=== PATIENT | female | born 1945 | race African-American/Black ===

== ENCOUNTER → 2016-12-27 | Outpatient (CLI) | payer MEDICARE, OTHER ==
--- NOTE | 2016-12-27 13:55 | KCIC ---
Examination: CT chest without contrast. HISTORY Follow-up abnormal CT scan COMPARISON None available. TECHNIQUE Axial CT images of the chest were performed without contrast. Coronal sagittal reformats were performed. Exposure: One or more of the following dose reduction technique were utilized for this examination: 1. Automated exposure control. 2.Adjustment of MA and /or KV according to patient size. 3. Use of iterative reconstruction technique. Findings: The visualized thyroid gland grossly appears unremarkable. The central airways are patent. Mild coronary artery calcifications. The heart size grossly appears unremarkable. The ascending aorta measures 3.7 centimeters in transverse dimension. Calcified lymph nodes identified in the right hilum and the right paratracheal region. There is faint ground-glass airspace opacity identified in the right upper lobe of the lung. No evidence of pleural effusion or pneumothorax. Multiple cystic structures identified in the liver with the largest measuring 3.1 centimeters in the left lobe likely cysts. Multiple calcified granulomas identified in the spleen . No evidence of lytic or destructive lesion identified. IMPRESSION - Faint ground-glass airspace opacity identified in the right upper lobe of the lung, nonspecific. Comparison to prior exam is recommended if available. Alternatively followup examination is recommended 3-6 months to document stability. - Multiple cystic structures identified in the liver probably cysts. - Mild coronary artery calcifications. Electronically signed by: Enmanuel De Los Santos (Dec 27, 2016 13:54:13)
== END | disposition home or self-care (01) ==
LOC: KCIC CT 09:43
PROVIDERS: ATTEND Internal Medicine Pulmonary Disease
DX: R91.8 Other nonspecific abnormal finding of lung field (principal); I25.10 Atherosclerotic heart disease of native coronary artery without angina pectoris
CPT/HCPCS: 71250

== ENCOUNTER → 2017-07-15 | Outpatient (CLI) | payer MEDICARE, OTHER ==
--- NOTE | 2017-07-16 11:52 | KCIC ---
DATE: 07/15/2017 EXAM: MAMMO ROSSANA SCREENING BILATERAL HISTORY: Routine screening COMPARISON: 06/19/2016 This study was interpreted with the benefit of Computerized Aided Detection (CAD). The breast parenchyma shows scattered fibroglandular densities. Breast parenchyma level B. FINDINGS: 2-D and 3-D tomosynthesis imaging was performed in CC and MLO projections. No new or enlarging breast densities are seen. Benign type calcifications are present. No suspicious microcalcifications are evident. Benign-appearing lymph node type densities are projected over the axillary regions. IMPRESSION: Stable mammograms without evidence of malignancy. BI-RADS CATEGORY: 2 BENIGN FINDING(S) RECOMMENDED FOLLOW-UP: 12M 12 MONTH FOLLOW-UP PQRS compliance statement: Patient information was entered into a reminder system with a target due date for the next mammogram. Mammography is a sensitive method for finding small breast cancers, but it does not detect them all and is not a substitute for careful clinical examination. A negative mammogram does not negate a clinically suspicious finding and should not result in delay in biopsying a clinically suspicious abnormality. "Our facility is accredited by the [employer] Mammography [employer]."
== END | disposition home or self-care (01) ==
LOC: KCIC MAMMO 09:16
PROVIDERS: ATTEND Internal Medicine
DX: Z12.31 Encounter for screening mammogram for malignant neoplasm of breast (principal)
CPT/HCPCS: 77063; G0202; 77067

== ENCOUNTER → 2018-07-16 | Outpatient (CLI) | payer MEDICARE, OTHER ==
--- NOTE | 2018-07-16 10:47 | KCIC ---
EXAM: Bilateral digital screening mammogram with tomosynthesis. HISTORY: 73-year-old female presents for screening mammography. TECHNIQUE: Full-field digital craniocaudal and mediolateral oblique 2D and 3D tomosynthesis images of both breasts are obtained for evaluation. Computer aided detection with [employer] software version 9.3 was applied. COMPARISON: 07/15/2017 BREAST PARENCHYMAL DENSITY: Level B - Scattered fibroglandular densities. FINDINGS: There is no new suspicious mass, microcalcification or region of architectural distortion. There is stable areas of nodularity and asymmetry within both breasts. IMPRESSION: BI-RADS Category 2: Benign finding(s). RECOMMENDATION: Annual mammography is recommended. If your mammogram demonstrates that you have dense breast tissue, which could hide abnormalities, and if you have other risk factors for breast cancer that have been identified, you might benefit from supplemental screening tests that may be suggested by your ordering physician. Dense breast tissue, in and of itself, is a relatively common condition. This information is not provided to cause undue concern, but rather to raise your awareness and to promote discussion with your physician regarding the presence of other risk factors, in addition to dense breast tissue. A report of your mammography results will be sent to you and your physician. You should contact your physician if you have any questions or concerns regarding this report. Mammography is a sensitive method for finding small breast cancers, but it does not detect them all and is not a substitute for careful clinical examination. A negative mammogram does not negate a clinically suspicious finding and should not result in delay in biopsying a clinically suspicious abnormality. PQRS compliance statement - Patient information was entered into a reminder system with a target due date for the next mammogram. "Our facility is accredited by the [employer]ammography [employer]." Electronically signed by: Lula Sims MD (07/16/2018 10:44 AM) [id number]
== END | disposition home or self-care (01) ==
LOC: KCIC MAMMO 09:45
PROVIDERS: ATTEND Internal Medicine
DX: Z12.31 Encounter for screening mammogram for malignant neoplasm of breast (principal)
CPT/HCPCS: 77063; 77067

== ENCOUNTER → 2018-12-11 | Outpatient (CLI) | payer MEDICARE, OTHER ==
[~2018-12-11] MED LIST: BENA20TA4 PO; IOHEXOL 300 MG/ML 100ML VIAL. IV ONE
--- NOTE | 2018-12-11 14:20 | KCIC ---
PQRS Compliance statement: One or more of the following individualized dose reduction techniques were utilized for this examination: 1. Automated exposure control. 2. Adjustment of the mA and/or kV according to patient size. 3. Use of iterative reconstruction technique. Indication:Ischemic colitis. Abdominal pain. TECHNIQUE: CT angiogram of the abdomen with IV contrast with multiplanar MIP reformats. 3-D volume rendered postprocessing was performed. Calculation of stenosis performed using NASCET like criteria. COMPARISON: CT abdomen pelvis from 12/23/2016. FINDINGS: Heart is normal in size. No pericardial or pleural effusion. Clear lung bases. Multiple scattered low attenuating lesions are seen in the liver demonstrating fluid density, the largest in segment 2 measuring 3.8 x 3.0 cm compatible with hepatic cysts. Multiple calcified granulomas seen in the spleen. No radiopaque gallstones. Pancreas and adrenals within normal limits. Kidneys within normal limits. No enlarged retroperitoneal adenopathy. Visualized bowel is within normal limits. No significant atherosclerotic disease of the abdominal aorta. No aneurysmal dilation. Celiac axis and SMA share is the same origin with mild atherosclerotic plaque at the origin. The splenic artery, left gastric artery, common hepatic artery, SMA, BRIT, bilateral renal arteries and proximal common iliac arteries are within normal limits. No suspicious bony lesion. IMPRESSION: Mild atherosclerotic plaque seen at the origin of the celiac axis and SMA which share common origin. No significant stenosis. Electronically signed by: Raymundo Mazariegos DO (12/11/2018 2:18 PM) [id number]
== END | disposition home or self-care (01) ==
LOC: KCIC CT 09:57
PROVIDERS: ATTEND Internal Medicine
DX: K55.1 Chronic vascular disorders of intestine (principal); K76.89 Other specified diseases of liver; D73.89 Other diseases of spleen
CPT/HCPCS: 74175; 82565; Q9967

== ENCOUNTER → 2019-01-11 | Outpatient (CLI) | payer MEDICARE, OTHER ==
[~2019-01-11] VITALS: Ht 170.2 cm; Wt 85.7 kg
[~2019-01-11] MED LIST changes: -IOHEXOL 300 MG/ML 100ML VIAL. IV ONE; +NORMAL SALINE IV ONE; +SINCALIDE IV ONE
--- NOTE | 2019-01-11 08:37 | RAD ---
ABDOMEN LTD History: EPIGASTRIC PAIN Comparison: Chest CT December 27, 2016 Findings: Multiple sonographic images of the abdomen are submitted. There is no abnormality of the visualized pancreas. There is segmental visualization of the inferior vena cava. Hepatic echotexture is within normal limits. There is a avascular hypoechoic lesion right lobe of liver up to 3.3 x 2.1 cm in size. There is also hypoechoic lesion left lobe of liver about 4.7 cm in size. Right lobe liver measured 16.2 cm longitudinal. Gallbladder is present without intraluminal abnormality, wall thickening, pericholecystic fluid. Right kidney measured 9.8 x 4.1 x 4.9 cm, no hydronephrosis. Common bile duct is within normal limits at 0.4 cm. Impression: 1. There are hypoechoic liver lesions, sonographic features suggestive of cysts. No other significant abnormality is demonstrated. Electronically signed by: Sergio Newberry MD (01/11/2019 8:34 AM) [id number]
--- NOTE | 2019-01-11 11:24 | RAD ---
Examination: Nuclear medicine hepatobiliary scan. Clinical Indication: Right-sided abdominal pain after eating Comparison: None available Findings: Following intravenous administration of 5.4 mCi of Choletec tagged with Tc, sequential gamma camera images of the right upper quadrant of the abdomen were obtained. There is prompt accumulation of radionuclide in the liver which appears to be unremarkable Prompt accumulation in the central intrahepatic biliary radicals, gallbladder, common bile duct and small bowel is noted. Patient was also infused with 1.7mcg of CCK and gallbladder ejection fraction was calculated which measures 97% Impression: Normal nuclear hepatobiliary scan with gallbladder ejection fraction measuring 97%. Electronically signed by: Enmanuel De Los Santos MD (01/11/2019 11:21 AM) [id number]
== END | disposition home or self-care (01) ==
LOC: US 07:05
PROVIDERS: ATTEND Internal Medicine Gastroenterology
DX: K76.89 Other specified diseases of liver (principal)
CPT/HCPCS: 76705; 78227; A9537; J2805

== ENCOUNTER → 2019-07-19 | Outpatient (CLI) | payer MEDICARE, OTHER ==
[~2019-07-19] MED LIST changes: -NORMAL SALINE IV ONE; -SINCALIDE IV ONE
--- NOTE | 2019-07-20 08:32 | KCIC ---
BILATERAL SCREENING MAMMOGRAM, 3-D History: Routine screening. Comparison: Abdominal mammogram July 16, 2018. Technique: MLO and CC digital tomosynthesis (3D) images obtained. Radiologist reviewed these images on dedicated workstation. Findings: Breast Tissue Density B : There are scattered areas of fibroglandular density. There are no dominant masses, suspicious microcalcifications, or architectural distortion. IMPRESSION: No mammographic evidence of malignancy. Recommend routine screening. BI-RADS category 1: Negative. The images were reviewed with computer-aided detection. Patient information is entered into reminder system with a target due date for the next screening mammogram. Mammography is the most sensitive method for finding small breast cancers, but it does not detect them all and is not a substitute for careful clinical examination. A negative mammogram does not negate a clinically suspicious finding and should not result in delay in biopsying a clinically suspicious abnormality. "Our facility is accredited by the [employer] Mammography [employer]." Electronically signed by: Don Otoole MD (07/20/2019 8:29 AM) [id number]
== END | disposition home or self-care (01) ==
LOC: KCIC MAMMO 10:23
PROVIDERS: ATTEND Internal Medicine
DX: Z12.31 Encounter for screening mammogram for malignant neoplasm of breast (principal)
CPT/HCPCS: 77063; 77067

== ENCOUNTER 2019-10-30 17:29 | Inpatient (IN) | payer MEDICARE, OTHER ==
[~2019-10-30] VITALS: Ht 170.2 cm; Wt 88.1 kg
[2019-10-30] MEDS ORDERED: NITROGLYCERIN SUBLINGUAL 0.4 MG BOTTLE OF 25. SL PRN (18:00)
[2019-10-30] MEDS ORDERED: ASPIRIN CHEWABLE 81 MG TABLET. PO ONE (18:00)
[2019-10-30 18:08] LABS: BASO # 0.1 x10^3/uL (0.0-0.2); BASO % 1 % (0-3); EOS # 0.1 x10^3/uL (0.0-0.7); EOS % 1 % (0-3); HEMATOCRIT 40.9 % (36.0-47.0); HEMOGLOBIN 13.6 g/dL (12.0-15.5); LYMPH # 2.1 x10^3/uL (1.0-4.8); LYMPH % 31 % (24-48); MEAN CORPUSCULAR HEMOGLOBIN 30 pg (25-35); MEAN CORPUSCULAR HGB CONC 33 g/dL (31-37); MEAN CORPUSCULAR VOLUME 91 fL (79-100); MONO # 0.4 x10^3/uL (0.0-1.1); MONO % 7 % (0-9); NEUT # 4.1 x10^3/uL (1.8-7.7); NEUT % 60 % (31-73); PLATELET COUNT 281 x10^3/uL (140-400); RED BLOOD COUNT 4.48 x10^6/uL (3.50-5.40); RED CELL DISTRIBUTION WIDTH 13.3 % (11.5-14.5); WHITE BLOOD COUNT 6.9 x10^3/uL (4.0-11.0)
--- NOTE | 2019-10-30 18:09 | PHYS DOC ---
Adult General Chief Complaint Chief Complaint: CHEST PAIN HPI HPI Patient is a 74 year old female with history of hypertension and GERD who presents with complaint of chest pain. Patient complaining of episodes of chest pain since yesterday in left lower chest as an aching pain associated with nausea and dizziness and palpitation. Pain resolved spontaneously yesterday and it started about 2 hours prior to arrival to ER today and did not resolve spontaneously. Patient rated her pain 7/10. Patient didn't take any pain medication and denies history of the same pain previously. The pain does not getting better or worse with anything. (KEY BANGURA MD) Review of Systems Review of Systems Constitutional: Denies fever or chills [] Eyes: Denies change in visual acuity, redness, or eye pain [] HENT: Denies nasal congestion or sore throat [] Respiratory: Denies cough or shortness of breath [] Cardiovascular: No additional information not addressed in HPI [] GI: Denies abdominal pain, vomiting, bloody stools or diarrhea [] : Denies dysuria or hematuria [] Musculoskeletal: Denies back pain or joint pain [] Integument: Denies rash or skin lesions [] Neurologic: Denies headache, focal weakness or sensory changes [] Endocrine: Denies polyuria or polydipsia [] All other systems were reviewed and found to be within normal limits, except as documented in this note. (KEY BANGURA MD) Current Medications Current Medications Current Medications Medications (Trade) Dose Ordered Sig/Devan Start Time Stop Time Status Last Admin Dose Admin Aspirin (Children'S Aspirin) 324 mg 1X ONCE 10/30/19 18:00 10/30/19 18:07 DC 10/30/19 18:00 324 MG Nitroglycerin (Nitrostat) 0.4 mg PRN Q5MIN PRN 10/30/19 18:00 10/31/19 17:59 10/30/19 18:43 0.4 MG (EDILBERTO MENDIOLA Jr. DO) Allergies Allergies Allergies Coded Allergies Type Severity Reaction Last Updated Verified Penicillins Allergy Intermediate 12/11/18 Yes (EDILBERTO MENDIOLA Jr. DO) Physical Exam Physical Exam Constitutional: Well developed, well nourished, mild distress, non-toxic appearance. [] HENT: Normocephalic, atraumatic. Eyes: PERRLA, EOMI, conjunctiva normal, no discharge. [] Neck: Normal range of motion, no tenderness, supple, no stridor. [] Cardiovascular:Heart rate regular rhythm, no murmur [] Lungs & Thorax: Bilateral breath sounds clear to auscultation , reproducible left-sided chest pain[] Abdomen: Bowel sounds normal, soft, no tenderness, no masses, no pulsatile masses. [] Skin: Warm, dry, no erythema, no rash. [] Back: No tenderness, no CVA tenderness. [] Extremities: No tenderness, no cyanosis, no clubbing, ROM intact, no edema. [] Neurologic: Alert and oriented X 3, no focal deficits noted. [] Psychologic: Affect normal, judgement normal, mood normal. [] (KEY BANGURA MD) Current Patient Data Vital Signs Vital Signs Date Time Temp Pulse Resp B/P (MAP) Pulse Ox O2 Delivery O2 Flow Rate FiO2 10/30/19 18:43 58 143/65 10/30/19 17:40 98.3 20 99 Room Air 98.3 (EDILBERTO MENDIOLA Jr. DO) Lab Values Laboratory Tests Test 10/30/19 17:52 White Blood Count 6.9 x10^3/uL (4.0-11.0) Red Blood Count 4.48 x10^6/uL (3.50-5.40) Hemoglobin 13.6 g/dL (12.0-15.5) Hematocrit 40.9 % (36.0-47.0) Mean Corpuscular Volume 91 fL (79-100) Mean Corpuscular Hemoglobin 30 pg (25-35) Mean Corpuscular Hemoglobin Concent 33 g/dL (31-37) Red Cell Distribution Width 13.3 % (11.5-14.5) Platelet Count 281 x10^3/uL (140-400) Neutrophils (%) (Auto) 60 % (31-73) Lymphocytes (%) (Auto) 31 % (24-48) Monocytes (%) (Auto) 7 % (0-9) Eosinophils (%) (Auto) 1 % (0-3) Basophils (%) (Auto) 1 % (0-3) Neutrophils # (Auto) 4.1 x10^3/uL (1.8-7.7) Lymphocytes # (Auto) 2.1 x10^3/uL (1.0-4.8) Monocytes # (Auto) 0.4 x10^3/uL (0.0-1.1) Eosinophils # (Auto) 0.1 x10^3/uL (0.0-0.7) Basophils # (Auto) 0.1 x10^3/uL (0.0-0.2) Prothrombin Time 12.5 SEC (11.7-14.0) Prothrombin Time INR 1.0 (0.8-1.1) Sodium Level 144 mmol/L (136-145) Potassium Level 3.7 mmol/L (3.5-5.1) Chloride Level 104 mmol/L (98-107) Carbon Dioxide Level 31 mmol/L (21-32) Anion Gap 9 (6-14) Blood Urea Nitrogen 15 mg/dL (7-20) Creatinine 1.3 mg/dL (0.6-1.0) H Estimated GFR (Cockcroft-Gault) 48.3 BUN/Creatinine Ratio 12 (6-20) Glucose Level 110 mg/dL (70-99) H Calcium Level 9.1 mg/dL (8.5-10.1) Magnesium Level 1.7 mg/dL (1.8-2.4) L Total Bilirubin 0.3 mg/dL (0.2-1.0) Aspartate Amino Transferase (AST) 18 U/L (15-37) Alanine Aminotransferase (ALT) 13 U/L (14-59) L Alkaline Phosphatase 85 U/L (46-116) Creatine Kinase 73 U/L (26-192) Troponin I Quantitative < 0.017 ng/mL (0.000-0.055) CE-Wll-K-Type Natriuretic Peptide 67 pg/mL (0-449) Total Protein 7.3 g/dL (6.4-8.2) Albumin 4.1 g/dL (3.4-5.0) Albumin/Globulin Ratio 1.3 (1.0-1.7) Lipase 105 U/L (73-393) Laboratory Tests 10/30/19 17:52 Laboratory Tests 10/30/19 17:52 (EDILBERTO MENDIOLA Jr. DO) EKG EKG EKG interpreted by me. EKG at 1740 showed normal sinus rhythm at rate of 64, left atrial abnormality, normal KS, prolonged QT, no acute ST and T-wave elevation. (KEY BANGURA MD) Radiology/Procedures Radiology/Procedures [] (KEY BANGURA MD) Course & Med Decision Making Course & Med Decision Making Pertinent Labs and Imaging studies are pending. Sign out given to Dr. Mendiola at 1800 for further evaluation and final disposition. Discussed current findings and plan with patient and family, who acknowledge understanding and agreement. (KEY BANGURA MD) Dragon Disclaimer Dragon Disclaimer This electronic medical record was generated, in whole or in part, using a voice recognition dictation system. (KEY BANGURA MD) Departure Departure Impression: Primary Impression: Acute chest pain Disposition: ADMITTED INPATIENT Admitting Physician: MAYELA (Dr. Bee) (EDILBERTO EMNDIOLA Jr. DO) Condition: IMPROVED Referrals: HENRY KRUSE MD (PCP) The HEART Score for CP Pts HEART Score for Chest Pain: HEART Score for Chest Pain Response (Comments) Value History Moderately Suspicious 1 ECG Nonspecific Repolarizatio 1 Age > 65 2 Risk Factors 1 or 2 Risk Factors 1 Total 5 Risk Factors: Risk Factors: DM, Current or recent (<one month) smoker, HTN, HLP, family history of CAD, obesity. Risk Scores: Score 0 - 3: 2.5% MACE over next 6 weeks - Discharge Home Score 4 - 6: 20.3% MACE over next 6 weeks - Admit for Clinical Observation Score 7 - 10: 72.7% MACE over next 6 weeks - Early Invasive Strategies (KEY BANGURA MD) KEY BANGURA MD Oct 30, 2019 18:09 EDILBERTO MENDIOLA Jr., DO Oct 30, 2019 19:15
[2019-10-30 18:19] LABS: PROTHROMBIN TIME PATIENT 12.5 SEC (11.7-14.0)
[2019-10-30 18:22] LABS: CALCIUM 9.1 mg/dL (8.5-10.1); CREATININE 1.3 mg/dL (0.6-1.0); GFR 48.3; POTASSIUM 3.7 mmol/L (3.5-5.1)
[2019-10-30 18:28] LABS: ALBUMIN 4.1 g/dL (3.4-5.0); ALBUMIN/GLOBULIN RATIO 1.3 (1.0-1.7); MAGNESIUM 1.7 mg/dL (1.8-2.4); TOTAL BILIRUBIN 0.3 mg/dL (0.2-1.0); TOTAL PROTEIN 7.3 g/dL (6.4-8.2)
--- NOTE | 2019-10-30 19:13 | RAD ---
Exam: Chest one view INDICATION: Chest pain TECHNIQUE: Frontal view of the chest Comparisons: None FINDINGS: Heart is mildly enlarged. Pulmonary vessels are within normal limits. Calcified hilar lymph nodes are noted. The lung and pleural spaces are clear. IMPRESSION: Mild cardiomegaly without acute pulmonary process. Electronically signed by: Aimee Kelley MD (10/30/2019 7:10 PM) [id number]
[2019-10-30] MEDS ORDERED: ONDANSETRON PF 4 MG/2 ML VIAL. IV PRN (19:15)
[2019-10-30] MEDS ORDERED: IBUPROFEN 200 MG TABLET. PO ONE (19:15)
[2019-10-30] MEDS ORDERED: MORPHINE SULFATE 2 MG/ML VIAL. IV PRN (19:15)
[2019-10-30] MEDS ORDERED: ESOM40CA47 PO (20:14)
[2019-10-30] MEDS ORDERED: BENA1TAB6 PO (20:14)
[2019-10-30 20:30] VITALS: BP 127/65
[2019-10-30 22:56] VITALS: BP 122/63
[2019-10-31 00:03] LABS: BILIRUBIN,URINE NEGATIVE (NEG); CLARITY,URINE CLOUDY; COLOR,URINE YELLOW; NITRITE,URINE NEGATIVE (NEG); PROTEIN,URINE NEGATIVE (NEG-TRACE); UROBILINOGEN,URINE 0.2 mg/dL (0.2 mg/dL)
[2019-10-31 00:10] LABS: SQUAMOUS EPITHELIAL CELL,UR FEW /LPF
[2019-10-31 00:11] LABS: BACTERIA,URINE FEW /HPF (0-FEW); RBC,URINE RARE /HPF (0-2)
[2019-10-31 02:40] VITALS: BP 106/57
[2019-10-31 07:33] VITALS: BP 117/56
[2019-10-31] MEDS: LISINOPRIL 20 MG TABLET PO SCH (08:09)
[2019-10-31] MEDS: hydroCHLOROthiazide 12.5 MG CAPSULE PO SCH (08:09)
[2019-10-31] MEDS: PANTOPRAZOLE 40 MG TABLET.DR. PO SCH (08:10)
[2019-10-31] MEDS ORDERED: NON FORMULARY ITEM (Benazepril/Hydrochlorothiazide (Benazepril-Hctz 20-12.5 Mg Tab) 1 TAB) PO SCH (09:00)
[2019-10-31 10:42] VITALS: BP 117/58
--- NOTE | 2019-10-31 11:14 | PDOC2 ---
CONSULT Date of Consult Date of Consult DATE: 10/31/19 TIME: 11:14 Reason for Consult Reason for Consult: Chest and abdominal pain Referring Physician Referring Physician: Dr. Helton Identification/Chief Complaint Chief Complaint Chest pain and abdominal pain Source Source: Chart review, Patient History of Present Illness Reason for Visit: 74-year-old female without any previous cardiac history presented with intermittent episodes of epigastric and retrosternal chest pain that she described as sharp in nature, mostly occurring in the night when she is lying down. She denied any exertional component to her chest pain. She also denied any orthopnea/PND, palpitations or syncope. Past Medical History Past Medical History Hypertension Gastroesophageal reflux disease Past Surgical History Past Surgical History: Hysterectomy Family History Family History Positive for coronary artery disease and hypertension Social History Social History Patient denied any smoking or drug abuse and admitted to very occasional intake of alcohol Current Problem List Problem List Problems Medical Problems: (1) Acute chest pain Status: Acute Current Medications Current Medications Current Medications Aspirin (Children'S Aspirin) 324 mg 1X ONCE PO Last administered on 10/30/19at 18:00; Start 10/30/19 at 18:00; Stop 10/30/19 at 18:07; Status DC Nitroglycerin (Nitrostat) 0.4 mg PRN Q5MIN PRN SL CP RATING > 1/10 Last adminis tered on 10/30/19at 18:43; Start 10/30/19 at 18:00; Stop 10/31/19 at 17:59 Ondansetron HCl (Zofran) 4 mg PRN Q8HRS PRN IV NAUSEA/VOMITING; Start 10/30/19 at 19:15; Stop 10/31/19 at 19:14 Morphine Sulfate (Morphine Sulfate) 2 mg PRN Q2HR PRN IV PAIN; Start 10/30/19 at 19:15; Stop 10/31/19 at 19:14 Ibuprofen (Motrin) 600 mg 1X ONCE PO Last administered on 10/30/19at 19:15; Start 10/30/19 at 19:15; Stop 10/30/19 at 19:18; Status DC Non-Formulary Medication (Benazepril/ Hydrochlorothiazide (Benazepril-Hctz 20- 12.5 Mg Tab)) 1 tab DAILY PO ; Start 10/31/19 at 09:00; Status UNV Pantoprazole Sodium (Protonix) 40 mg DAILYAC PO Last administered on 10/31/19at 08:10; Start 10/31/19 at 07:30 Lisinopril (Prinivil) 20 mg DAILY PO Last administered on 10/31/19at 08:09; Start 10/31/19 at 09:00 Hydrochlorothiazide (Microzide) 12.5 mg DAILY PO Last administered on 10/31/19at 08:09; Start 10/31/19 at 09:00 Active Scripts Active Reported Esomeprazole Magnesium 40 Mg Capsule. 1 Tab PO DAILY Benazepril-Hctz 20-12.5 Mg Tab (Benazepril/Hydrochlorothiazide) 1 Each Tablet 1 Tab PO DAILY Allergies Allergies: Coded Allergies: Penicillins (Verified Allergy, Intermediate, 12/11/18) ROS PSYCHOLOGICAL ROS: No: Hallucinations Eyes: No Loss of vision HEENT: No: Epistaxis Respiratory: No: Hemoptysis Cardiovascular: yes Chest Pain Gastrointestinal: Yes Abdominal Pain; No Vomiting Genitourinary: No Hematuria Neurological: No Seizures Skin: No Rash Physical Exam General: Alert, Oriented X3 HEENT: Atraumatic Lungs: Clear to auscultation Heart: Regular rate Abdomen: Soft Extremities: No edema Psych/Mental Status: Mood NL Vitals VITALS Vital Signs Date Time Temp Pulse Resp B/P (MAP) Pulse Ox O2 Delivery O2 Flow Rate FiO2 10/31/19 10:42 98.1 64 16 117/58 (77) 96 Room Air 98.1 Labs Labs Laboratory Tests Test 10/30/19 17:52 10/30/19 23:15 10/30/19 23:55 10/31/19 03:50 White Blood Count 6.9 x10^3/uL (4.0-11.0) Red Blood Count 4.48 x10^6/uL (3.50-5.40) Hemoglobin 13.6 g/dL (12.0-15.5) Hematocrit 40.9 % (36.0-47.0) Mean Corpuscular Volume 91 fL (79-100) Mean Corpuscular Hemoglobin 30 pg (25-35) Mean Corpuscular Hemoglobin Concent 33 g/dL (31-37) Red Cell Distribution Width 13.3 % (11.5-14.5) Platelet Count 281 x10^3/uL (140-400) Neutrophils (%) (Auto) 60 % (31-73) Lymphocytes (%) (Auto) 31 % (24-48) Monocytes (%) (Auto) 7 % (0-9) Eosinophils (%) (Auto) 1 % (0-3) Basophils (%) (Auto) 1 % (0-3) Neutrophils # (Auto) 4.1 x10^3/uL (1.8-7.7) Lymphocytes # (Auto) 2.1 x10^3/uL (1.0-4.8) Monocytes # (Auto) 0.4 x10^3/uL (0.0-1.1) Eosinophils # (Auto) 0.1 x10^3/uL (0.0-0.7) Basophils # (Auto) 0.1 x10^3/uL (0.0-0.2) Prothrombin Time 12.5 SEC (11.7-14.0) Prothromb Time International Ratio 1.0 (0.8-1.1) Sodium Level 144 mmol/L (136-145) Potassium Level 3.7 mmol/L (3.5-5.1) Chloride Level 104 mmol/L (98-107) Carbon Dioxide Level 31 mmol/L (21-32) Anion Gap 9 (6-14) Blood Urea Nitrogen 15 mg/dL (7-20) Creatinine 1.3 mg/dL (0.6-1.0) Estimated GFR (Cockcroft-Gault) 48.3 BUN/Creatinine Ratio 12 (6-20) Glucose Level 110 mg/dL (70-99) Calcium Level 9.1 mg/dL (8.5-10.1) Magnesium Level 1.7 mg/dL (1.8-2.4) Total Bilirubin 0.3 mg/dL (0.2-1.0) Aspartate Amino Transf (AST/SGOT) 18 U/L (15-37) Alanine Aminotransferase (ALT/SGPT) 13 U/L (14-59) Alkaline Phosphatase 85 U/L (46-116) Creatine Kinase 73 U/L (26-192) Troponin I Quantitative < 0.017 ng/mL (0.000-0.055) < 0.017 ng/mL (0.000-0.055) < 0.017 ng/mL (0.000-0.055) GK-Nqu-F-Type Natriuretic Peptide 67 pg/mL (0-449) Total Protein 7.3 g/dL (6.4-8.2) Albumin 4.1 g/dL (3.4-5.0) Albumin/Globulin Ratio 1.3 (1.0-1.7) Lipase 105 U/L (73-393) Urine Collection Type Unknown Urine Color Yellow Urine Clarity Cloudy Urine pH 5.0 Urine Specific [place] 1.015 Urine Protein Negative mg/dL (NEG-TRACE) Urine Glucose (UA) Negative mg/dL (NEG) Urine Ketones (Stick) Negative mg/dL (NEG) Urine Blood Negative (NEG) Urine Nitrite Negative (NEG) Urine Bilirubin Negative (NEG) Urine Urobilinogen Dipstick 0.2 mg/dL (0.2 mg/dL) Urine Leukocyte Esterase Moderate (NEG) Urine RBC Rare /HPF (0-2) Urine WBC 5-10 /HPF (0-4) Urine Squamous Epithelial Cells Few /LPF Urine Bacteria Few /HPF (0-FEW) Urine Mucus Mod /LPF Laboratory Tests Test 10/30/19 17:52 10/30/19 23:15 10/30/19 23:55 10/31/19 03:50 White Blood Count 6.9 x10^3/uL (4.0-11.0) Red Blood Count 4.48 x10^6/uL (3.50-5.40) Hemoglobin 13.6 g/dL (12.0-15.5) Hematocrit 40.9 % (36.0-47.0) Mean Corpuscular Volume 91 fL (79-100) Mean Corpuscular Hemoglobin 30 pg (25-35) Mean Corpuscular Hemoglobin Concent 33 g/dL (31-37) Red Cell Distribution Width 13.3 % (11.5-14.5) Platelet Count 281 x10^3/uL (140-400) Neutrophils (%) (Auto) 60 % (31-73) Lymphocytes (%) (Auto) 31 % (24-48) Monocytes (%) (Auto) 7 % (0-9) Eosinophils (%) (Auto) 1 % (0-3) Basophils (%) (Auto) 1 % (0-3) Neutrophils # (Auto) 4.1 x10^3/uL (1.8-7.7) Lymphocytes # (Auto) 2.1 x10^3/uL (1.0-4.8) Monocytes # (Auto) 0.4 x10^3/uL (0.0-1.1) Eosinophils # (Auto) 0.1 x10^3/uL (0.0-0.7) Basophils # (Auto) 0.1 x10^3/uL (0.0-0.2) Prothrombin Time 12.5 SEC (11.7-14.0) Prothromb Time International Ratio 1.0 (0.8-1.1) Sodium Level 144 mmol/L (136-145) Potassium Level 3.7 mmol/L (3.5-5.1) Chloride Level 104 mmol/L (98-107) Carbon Dioxide Level 31 mmol/L (21-32) Anion Gap 9 (6-14) Blood Urea Nitrogen 15 mg/dL (7-20) Creatinine 1.3 mg/dL (0.6-1.0) Estimated GFR (Cockcroft-Gault) 48.3 BUN/Creatinine Ratio 12 (6-20) Glucose Level 110 mg/dL (70-99) Calcium Level 9.1 mg/dL (8.5-10.1) Magnesium Level 1.7 mg/dL (1.8-2.4) Total Bilirubin 0.3 mg/dL (0.2-1.0) Aspartate Amino Transf (AST/SGOT) 18 U/L (15-37) Alanine Aminotransferase (ALT/SGPT) 13 U/L (14-59) Alkaline Phosphatase 85 U/L (46-116) Creatine Kinase 73 U/L (26-192) Troponin I Quantitative < 0.017 ng/mL (0.000-0.055) < 0.017 ng/mL (0.000-0.055) < 0.017 ng/mL (0.000-0.055) HX-Ecy-L-Type Natriuretic Peptide 67 pg/mL (0-449) Total Protein 7.3 g/dL (6.4-8.2) Albumin 4.1 g/dL (3.4-5.0) Albumin/Globulin Ratio 1.3 (1.0-1.7) Lipase 105 U/L (73-393) Urine Collection Type Unknown Urine Color Yellow Urine Clarity Cloudy Urine pH 5.0 Urine Specific [place] 1.015 Urine Protein Negative mg/dL (NEG-TRACE) Urine Glucose (UA) Negative mg/dL (NEG) Urine Ketones (Stick) Negative mg/dL (NEG) Urine Blood Negative (NEG) Urine Nitrite Negative (NEG) Urine Bilirubin Negative (NEG) Urine Urobilinogen Dipstick 0.2 mg/dL (0.2 mg/dL) Urine Leukocyte Esterase Moderate (NEG) Urine RBC Rare /HPF (0-2) Urine WBC 5-10 /HPF (0-4) Urine Squamous Epithelial Cells Few /LPF Urine Bacteria Few /HPF (0-FEW) Urine Mucus Mod /LPF Assessment/Plan Assessment/Plan 1. Chest pain with atypical features and most probably GI etiology. Myocardial infarction has been ruled out. Due to her family history of coronary artery disease, we will obtain an exercise stress echocardiogram to rule out ischemia. This could be done as an outpatient if discharged today. 2. Abdominal pain, mostly irritable bowel syndrome per GI team. Continue current management. 3. Hypertension: Controlled Thank you for your consultation. AYDE VALVERDE MD Oct 31, 2019 11:14
[2019-10-31] MEDS: ACETAMINOPHEN 325 MG TABLET. PO PRN ×2 (11:44→16:26)
--- NOTE | 2019-10-31 13:01 | PDOC1 ---
History and Physical Date of Admission: Date of Admission DATE: 10/31/19 TIME: 12:58 Chief Complaint: Chief Complain: Chest pain abdominal pain History of Present Illness: HPI: This is a pleasant middle-aged -Italian female who appears younger than her stated age She basically came in with chest pain She states she's been having a lot of GI problems since the middle of last year and has been to several gastrointestinal appointments She is even had an EGD and a colonoscopy and a gallbladder study all of which were apparently negative other than reflux Now she's concerned she could have coronary disease Indeed her sister and her brother have coronary issues and in fact her sister from coronary issues She rates her pain at 7 out of 10 She has associated anxiety Spell occurring for several months but it worse in the past couple of days Sape-peq-qybrwyd meds did not help Describes the pain as very irritating I discussed the case with the ER physician and Dr. Verdin Patient has been admitted were going to do a stress test tomorrow and we are consulting GI Past Medical/Surgical History: PMH/PSH: Hypertension GERD Allergies: Allergies: Coded Allergies: Penicillins (Verified Allergy, Intermediate, 12/11/18) Family History: Family History: Coronary disease Social History: Social Hisoty: She does not drink smoke or take drugs she is retired lives alone Current Medications: Current Medications Current Medications Aspirin (Children'S Aspirin) 324 mg 1X ONCE PO Last administered on 10/30/19at 18:00; Start 10/30/19 at 18:00; Stop 10/30/19 at 18:07; Status DC Nitroglycerin (Nitrostat) 0.4 mg PRN Q5MIN PRN SL CP RATING > 1/10 Last administered on 10/30/19at 18:43; Start 10/30/19 at 18:00; Stop 10/31/19 at 17:59 Ondansetron HCl (Zofran) 4 mg PRN Q8HRS PRN IV NAUSEA/VOMITING; Start 10/30/19 at 19:15; Stop 10/31/19 at 19:14 Morphine Sulfate (Morphine Sulfate) 2 mg PRN Q2HR PRN IV PAIN; Start 10/30/19 at 19:15; Stop 10/31/19 at 19:14 Ibuprofen (Motrin) 600 mg 1X ONCE PO Last administered on 10/30/19at 19:15; Start 10/30/19 at 19:15; Stop 10/30/19 at 19:18; Status DC Non-Formulary Medication (Benazepril/ Hydrochlorothiazide (Benazepril-Hctz 20- 12.5 Mg Tab)) 1 tab DAILY PO ; Start 10/31/19 at 09:00; Status UNV Pantoprazole Sodium (Protonix) 40 mg DAILYAC PO Last administered on 10/31/19at 08:10; Start 10/31/19 at 07:30 Lisinopril (Prinivil) 20 mg DAILY PO Last administered on 10/31/19at 08:09; Start 10/31/19 at 09:00 Hydrochlorothiazide (Microzide) 12.5 mg DAILY PO Last administered on 10/31/19at 08:09; Start 10/31/19 at 09:00 Acetaminophen (Tylenol) 650 mg PRN Q6HRS PRN PO HEADACHE Last administered on 10/31/19at 11:44; Start 10/31/19 at 11:30 Active Scripts Active Reported Esomeprazole Magnesium 40 Mg Capsule.dr 1 Tab PO DAILY Benazepril-Hctz 20-12.5 Mg Tab (Benazepril/Hydrochlorothiazide) 1 Each Tablet 1 Tab PO DAILY ROS: Review of Systems Review of System REVIEW OF SYSTEMS: GENERAL: Denies weakness SKIN: No bruising, hair changes or rashes. EYES: No blurred, double or loss of vision. NOSE AND THROAT: No history of nosebleeds, hoarseness or sore throat. HEART: Complains of chest pain LUNGS: Denies cough, hemoptysis, wheezing or shortness of breath. GASTROINTESTINAL: Complains of nausea and heartburn GENITOURINARY: No history of frequency, urgency, hesitancy or nocturia. NEUROLOGIC: Denies history of numbness, tingling, or tremor. PSYCHIATRIC: No history of panic, anxiety or depression. ENDOCRINE: No history of heat or cold intolerance, polyuria or polydipsia. EXTREMITIES: Denies joint pain, pain on walking or stiffness. Physical Exam: Vital Signs: Vital Signs Date Time Temp Pulse Resp B/P (MAP) Pulse Ox O2 Delivery O2 Flow Rate FiO2 10/31/19 10:42 98.1 64 16 117/58 (77) 96 Room Air 98.1 Physcial Exam: GEN: No apparent distress. Alert and oriented HEENT: Normal cephalic, atraumatic, external auditory canals are patent EYES: Extraocular muscles are intact, pupil are equally round and reactive to light and accommodation MUSCULOSKELETAL: Well developed , well nourished, good range of motion ENDOCRINE: No thyromegaly was palpated LYMPHATICS: No cervical chain or axillary nodes were noted HEMATOPOIETIC: No bruising NECK: Supple, no JVD, no thyromegaly was noted LUNGS: Clear to auscultation in all lung visnon without rhonchi or wheezing HEART: RRR, S!, S2 present. Peripheral pulses intact, no obvious murmurs noted ABDOMEN: Soft, nontender. Positive bowel sounds, no organomegaly, normal bowel sounds EXTREMITIES: Without clubbing, cyanosis, or edema. Pedal pulses intact. Negative Homans sign NEUROLOGIC: Normal speech and tone. A&O x 3, moves all extremities, no obvious focal deficits PSYCHIATRIC: Normal affect, normal mood. Stable SKIN: No ulcerations or rashes, good skin turgor, no jaundice VASCULAR: Good capillary refill, neurovascular bundle appears to be intact Labs: Labs: Laboratory Tests Test 10/30/19 17:52 10/30/19 23:15 10/30/19 23:55 10/31/19 03:50 White Blood Count 6.9 x10^3/uL (4.0-11.0) Red Blood Count 4.48 x10^6/uL (3.50-5.40) Hemoglobin 13.6 g/dL (12.0-15.5) Hematocrit 40.9 % (36.0-47.0) Mean Corpuscular Volume 91 fL (79-100) Mean Corpuscular Hemoglobin 30 pg (25-35) Mean Corpuscular Hemoglobin Concent 33 g/dL (31-37) Red Cell Distribution Width 13.3 % (11.5-14.5) Platelet Count 281 x10^3/uL (140-400) Neutrophils (%) (Auto) 60 % (31-73) Lymphocytes (%) (Auto) 31 % (24-48) Monocytes (%) (Auto) 7 % (0-9) Eosinophils (%) (Auto) 1 % (0-3) Basophils (%) (Auto) 1 % (0-3) Neutrophils # (Auto) 4.1 x10^3/uL (1.8-7.7) Lymphocytes # (Auto) 2.1 x10^3/uL (1.0-4.8) Monocytes # (Auto) 0.4 x10^3/uL (0.0-1.1) Eosinophils # (Auto) 0.1 x10^3/uL (0.0-0.7) Basophils # (Auto) 0.1 x10^3/uL (0.0-0.2) Prothrombin Time 12.5 SEC (11.7-14.0) Prothromb Time International Ratio 1.0 (0.8-1.1) Sodium Level 144 mmol/L (136-145) Potassium Level 3.7 mmol/L (3.5-5.1) Chloride Level 104 mmol/L (98-107) Carbon Dioxide Level 31 mmol/L (21-32) Anion Gap 9 (6-14) Blood Urea Nitrogen 15 mg/dL (7-20) Creatinine 1.3 mg/dL (0.6-1.0) Estimated GFR (Cockcroft-Gault) 48.3 BUN/Creatinine Ratio 12 (6-20) Glucose Level 110 mg/dL (70-99) Calcium Level 9.1 mg/dL (8.5-10.1) Magnesium Level 1.7 mg/dL (1.8-2.4) Total Bilirubin 0.3 mg/dL (0.2-1.0) Aspartate Amino Transf (AST/SGOT) 18 U/L (15-37) Alanine Aminotransferase (ALT/SGPT) 13 U/L (14-59) Alkaline Phosphatase 85 U/L (46-116) Creatine Kinase 73 U/L (26-192) Troponin I Quantitative < 0.017 ng/mL (0.000-0.055) < 0.017 ng/mL (0.000-0.055) < 0.017 ng/mL (0.000-0.055) IG-Gwy-Y-Type Natriuretic Peptide 67 pg/mL (0-449) Total Protein 7.3 g/dL (6.4-8.2) Albumin 4.1 g/dL (3.4-5.0) Albumin/Globulin Ratio 1.3 (1.0-1.7) Lipase 105 U/L (73-393) Urine Collection Type Unknown Urine Color Yellow Urine Clarity Cloudy Urine pH 5.0 Urine Specific [place] 1.015 Urine Protein Negative mg/dL (NEG-TRACE) Urine Glucose (UA) Negative mg/dL (NEG) Urine Ketones (Stick) Negative mg/dL (NEG) Urine Blood Negative (NEG) Urine Nitrite Negative (NEG) Urine Bilirubin Negative (NEG) Urine Urobilinogen Dipstick 0.2 mg/dL (0.2 mg/dL) Urine Leukocyte Esterase Moderate (NEG) Urine RBC Rare /HPF (0-2) Urine WBC 5-10 /HPF (0-4) Urine Squamous Epithelial Cells Few /LPF Urine Bacteria Few /HPF (0-FEW) Urine Mucus Mod /LPF Laboratory Tests Test 10/30/19 17:52 10/30/19 23:15 10/30/19 23:55 10/31/19 03:50 White Blood Count 6.9 x10^3/uL (4.0-11.0) Red Blood Count 4.48 x10^6/uL (3.50-5.40) Hemoglobin 13.6 g/dL (12.0-15.5) Hematocrit 40.9 % (36.0-47.0) Mean Corpuscular Volume 91 fL (79-100) Mean Corpuscular Hemoglobin 30 pg (25-35) Mean Corpuscular Hemoglobin Concent 33 g/dL (31-37) Red Cell Distribution Width 13.3 % (11.5-14.5) Platelet Count 281 x10^3/uL (140-400) Neutrophils (%) (Auto) 60 % (31-73) Lymphocytes (%) (Auto) 31 % (24-48) Monocytes (%) (Auto) 7 % (0-9) Eosinophils (%) (Auto) 1 % (0-3) Basophils (%) (Auto) 1 % (0-3) Neutrophils # (Auto) 4.1 x10^3/uL (1.8-7.7) Lymphocytes # (Auto) 2.1 x10^3/uL (1.0-4.8) Monocytes # (Auto) 0.4 x10^3/uL (0.0-1.1) Eosinophils # (Auto) 0.1 x10^3/uL (0.0-0.7) Basophils # (Auto) 0.1 x10^3/uL (0.0-0.2) Prothrombin Time 12.5 SEC (11.7-14.0) Prothromb Time International Ratio 1.0 (0.8-1.1) Sodium Level 144 mmol/L (136-145) Potassium Level 3.7 mmol/L (3.5-5.1) Chloride Level 104 mmol/L (98-107) Carbon Dioxide Level 31 mmol/L (21-32) Anion Gap 9 (6-14) Blood Urea Nitrogen 15 mg/dL (7-20) Creatinine 1.3 mg/dL (0.6-1.0) Estimated GFR (Cockcroft-Gault) 48.3 BUN/Creatinine Ratio 12 (6-20) Glucose Level 110 mg/dL (70-99) Calcium Level 9.1 mg/dL (8.5-10.1) Magnesium Level 1.7 mg/dL (1.8-2.4) Total Bilirubin 0.3 mg/dL (0.2-1.0) Aspartate Amino Transf (AST/SGOT) 18 U/L (15-37) Alanine Aminotransferase (ALT/SGPT) 13 U/L (14-59) Alkaline Phosphatase 85 U/L (46-116) Creatine Kinase 73 U/L (26-192) Troponin I Quantitative < 0.017 ng/mL (0.000-0.055) < 0.017 ng/mL (0.000-0.055) < 0.017 ng/mL (0.000-0.055) PG-Vjo-C-Type Natriuretic Peptide 67 pg/mL (0-449) Total Protein 7.3 g/dL (6.4-8.2) Albumin 4.1 g/dL (3.4-5.0) Albumin/Globulin Ratio 1.3 (1.0-1.7) Lipase 105 U/L (73-393) Urine Collection Type Unknown Urine Color Yellow Urine Clarity Cloudy Urine pH 5.0 Urine Specific [place] 1.015 Urine Protein Negative mg/dL (NEG-TRACE) Urine Glucose (UA) Negative mg/dL (NEG) Urine Ketones (Stick) Negative mg/dL (NEG) Urine Blood Negative (NEG) Urine Nitrite Negative (NEG) Urine Bilirubin Negative (NEG) Urine Urobilinogen Dipstick 0.2 mg/dL (0.2 mg/dL) Urine Leukocyte Esterase Moderate (NEG) Urine RBC Rare /HPF (0-2) Urine WBC 5-10 /HPF (0-4) Urine Squamous Epithelial Cells Few /LPF Urine Bacteria Few /HPF (0-FEW) Urine Mucus Mod /LPF Images: Images Exam: Chest one view INDICATION: Chest pain TECHNIQUE: Frontal view of the chest Comparisons: None FINDINGS: Heart is mildly enlarged. Pulmonary vessels are within normal limits. Calcified hilar lymph nodes are noted. The lung and pleural spaces are clear. IMPRESSION: Mild cardiomegaly without acute pulmonary process. Assessment/Plan Assessment/Plan Chest pain in a 69-year-old female who has known family history of coronary disease Abnormal chest x-ray with some cardiomegaly GERD Plan Cardiac monitoring Serial enzymes Serial EKGs Proton pump inhibitors Consult GI Consul cardiology Trend labs Home meds DVT prophylaxis Full code She is going for a stress test in the morning ESTEBAN RUSSELL III DO Oct 31, 2019 13:01
--- NOTE | 2019-10-31 13:48 | PDOC2 ---
GI CONSULT Reason For Consult: Abdominal pain HPI: HPI: 74 y/o female we are asked to see re: abdominal pain. Describes daily LQ pain. Typically awakens with this, then stools with transient relief. Has variable stools from formed to loose with occasional "purge". Never truly constipated. No overt bleeding. "Normal" colonoscopy (with EGD) by Dr. Nobles w/in past 2 years. Prior exams also recalled as normal. Wt/appetite OK. No N, V. Has frequent urge to stool pc and feeling of incomplete evacuation. Long h/o GERD, taking PPI daily not always in optimal fashion. Prior EGD's not recalled as particularly abnormal. Has had empiric dilations. No PUD, GB, liver or pancreatic history. Imaging here includes sonogram, HIDA with GBEF, and CTA abdomen; all w/o pathology. 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 PMH: PMH: HTN. S/P hysterectomy. FH: Family History: No pertinent hx Social History: Smoke: No ALCOHOL: rare Drugs: None ROS: GEN: Denies fevers, chills, sweats HEENT: Denies blurred vision, sore throat CV: Chest pain as above. RESP: Denies shortness of air, cough GI: Per HPI : Denies hematuria, dysuria ENDO: Denies weight changes NEURO: Denies confusion, dizziness MSK: Denies weakness, joint pain/swelling SKIN: Denies jaundice, pruritus Vitals: Vitals: Vital Signs Date Time Temp Pulse Resp B/P (MAP) Pulse Ox O2 Delivery O2 Flow Rate FiO2 10/31/19 10:42 98.1 64 16 117/58 (77) 96 Room Air 98.1 Labs: Labs: Laboratory Tests Test 10/30/19 17:52 10/30/19 23:15 10/30/19 23:55 10/31/19 03:50 White Blood Count 6.9 x10^3/uL (4.0-11.0) Red Blood Count 4.48 x10^6/uL (3.50-5.40) Hemoglobin 13.6 g/dL (12.0-15.5) Hematocrit 40.9 % (36.0-47.0) Mean Corpuscular Volume 91 fL (79-100) Mean Corpuscular Hemoglobin 30 pg (25-35) Mean Corpuscular Hemoglobin Concent 33 g/dL (31-37) Red Cell Distribution Width 13.3 % (11.5-14.5) Platelet Count 281 x10^3/uL (140-400) Neutrophils (%) (Auto) 60 % (31-73) Lymphocytes (%) (Auto) 31 % (24-48) Monocytes (%) (Auto) 7 % (0-9) Eosinophils (%) (Auto) 1 % (0-3) Basophils (%) (Auto) 1 % (0-3) Neutrophils # (Auto) 4.1 x10^3/uL (1.8-7.7) Lymphocytes # (Auto) 2.1 x10^3/uL (1.0-4.8) Monocytes # (Auto) 0.4 x10^3/uL (0.0-1.1) Eosinophils # (Auto) 0.1 x10^3/uL (0.0-0.7) Basophils # (Auto) 0.1 x10^3/uL (0.0-0.2) Prothrombin Time 12.5 SEC (11.7-14.0) Prothromb Time International Ratio 1.0 (0.8-1.1) Sodium Level 144 mmol/L (136-145) Potassium Level 3.7 mmol/L (3.5-5.1) Chloride Level 104 mmol/L (98-107) Carbon Dioxide Level 31 mmol/L (21-32) Anion Gap 9 (6-14) Blood Urea Nitrogen 15 mg/dL (7-20) Creatinine 1.3 mg/dL (0.6-1.0) Estimated GFR (Cockcroft-Gault) 48.3 BUN/Creatinine Ratio 12 (6-20) Glucose Level 110 mg/dL (70-99) Calcium Level 9.1 mg/dL (8.5-10.1) Magnesium Level 1.7 mg/dL (1.8-2.4) Total Bilirubin 0.3 mg/dL (0.2-1.0) Aspartate Amino Transf (AST/SGOT) 18 U/L (15-37) Alanine Aminotransferase (ALT/SGPT) 13 U/L (14-59) Alkaline Phosphatase 85 U/L (46-116) Creatine Kinase 73 U/L (26-192) Troponin I Quantitative < 0.017 ng/mL (0.000-0.055) < 0.017 ng/mL (0.000-0.055) < 0.017 ng/mL (0.000-0.055) TL-Koe-B-Type Natriuretic Peptide 67 pg/mL (0-449) Total Protein 7.3 g/dL (6.4-8.2) Albumin 4.1 g/dL (3.4-5.0) Albumin/Globulin Ratio 1.3 (1.0-1.7) Lipase 105 U/L (73-393) Urine Collection Type Unknown Urine Color Yellow Urine Clarity Cloudy Urine pH 5.0 Urine Specific [place] 1.015 Urine Protein Negative mg/dL (NEG-TRACE) Urine Glucose (UA) Negative mg/dL (NEG) Urine Ketones (Stick) Negative mg/dL (NEG) Urine Blood Negative (NEG) Urine Nitrite Negative (NEG) Urine Bilirubin Negative (NEG) Urine Urobilinogen Dipstick 0.2 mg/dL (0.2 mg/dL) Urine Leukocyte Esterase Moderate (NEG) Urine RBC Rare /HPF (0-2) Urine WBC 5-10 /HPF (0-4) Urine Squamous Epithelial Cells Few /LPF Urine Bacteria Few /HPF (0-FEW) Urine Mucus Mod /LPF Allergies: Coded Allergies: Penicillins (Verified Allergy, Intermediate, 12/11/18) Medications: Current Medications Medications (Trade) Dose Ordered Sig/Devan Route PRN Reason Start Time Stop Time Status Last Admin Dose Admin Aspirin (Children'S Aspirin) 324 mg 1X ONCE PO 10/30/19 18:00 10/30/19 18:07 DC 10/30/19 18:00 Nitroglycerin (Nitrostat) 0.4 mg PRN Q5MIN PRN SL CP RATING > 1/10 10/30/19 18:00 10/31/19 17:59 10/30/19 18:43 Ibuprofen (Motrin) 600 mg 1X ONCE PO 10/30/19 19:15 10/30/19 19:18 DC 10/30/19 19:15 Pantoprazole Sodium (Protonix) 40 mg DAILYAC PO 10/31/19 07:30 10/31/19 08:10 Lisinopril (Prinivil) 20 mg DAILY PO 10/31/19 09:00 10/31/19 08:09 Hydrochlorothiazide (Microzide) 12.5 mg DAILY PO 10/31/19 09:00 10/31/19 08:09 Acetaminophen (Tylenol) 650 mg PRN Q6HRS PRN PO HEADACHE 10/31/19 11:30 10/31/19 11:44 PE: GEN: NAD HEENT: Atraumatic, PERRLA LUNGS: CTAB HEART: RRR, no murmurs ABD: NABS, S/ND/NT, no masses EXTREMITY: No edema SKIN: No rashes, no jaundice NEURO/PSYCH: A & O 3 A/P: A/P: IMP: Abdominal pain c/w IBS. GERD. Likely contributes to chest symptoms. REC: antispasmodic prn. Continue PPI. Thanks. Dr. Nobles back tomorrow. IVAN DAVILA MD Oct 31, 2019 13:48
[2019-10-31 14:28] VITALS: BP 104/52
--- NOTE | 2019-10-31 16:49 | EKG ---
[facility] [address] [place] [address] Test Date: 2019-10-30 Test Time: 17:40:17 Pat Name: MARK CUELLAR Department: Room: Gender: F Ad Setter: : 1945 Requested By: KEY BANGURA Order Number: [id number] Reading MD: Measurements Intervals Hope Rate: 64 P: 48 OR: 140 QRS: 6 QRSD: 78 T: 22 QT: 414 QTc: 431 Interpretive Statements SINUS RHYTHM LEFT ATRIAL ABNORMALITY ABNORMAL ECG No previous ECG available for comparison
[2019-10-31 19:35] VITALS: BP 109/58
[2019-10-31] MEDS: HYOSCYAMINE 0.125 MG TAB.RAPDIS PO PRN (21:02)
[2019-10-31 22:12] VITALS: BP 106/55
[2019-11-01 02:07] VITALS: BP 98/48
[2019-11-01 07:00] VITALS: BP 113/59
--- NOTE | 2019-11-01 09:53 | PDOC ---
Subjective: Subjective: Not sure if hyoscyamine helped because she was asleep. NPO this morning. Still some lower abdominal cramping "constant." Little pebble stools today. Takes Miralax PRN at home. Lots of stress recently. 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 Vital Signs: Vital Signs Date Time Temp Pulse Resp B/P (MAP) Pulse Ox O2 Delivery O2 Flow Rate FiO2 11/01/19 07:00 98.3 60 16 113/59 (77) 95 Room Air 98.3 Imaging: Abd CTA 12/2018 IMPRESSION: Mild atherosclerotic plaque seen at the origin of the celiac axis and SMA which share common origin. No significant stenosis. Abd US 01/2019 Impression: 1. There are hypoechoic liver lesions, sonographic features suggestive of cysts. No other significant abnormality is demonstrated. HIDA 01/2019 Impression: Normal nuclear hepatobiliary scan with gallbladder ejection fraction measuring 97%. PE: GEN: NAD LUNGS: CTAB HEART: RRR ABD: NABS, S/ND, does not seem particularly uncomfortable NEURO/PSYCH: A & O 3 A/P: Chest pain GERD, IBS -- Await cardiac testing - stress echo ordered for today. Continue hyoscyamine and PPI. Add Miralax. Past imaging as above, has also had 'scopes w/ Dr. Nobles. Hemodynamically unstable?: No Is patient in severe pain?: No Is NPO status required?: No ALICE CRUZ Nov 01, 2019 09:53
[2019-11-01] MEDS ORDERED: POLYETHYLENE GLYCOL 3350 17 GM PACKET. PO SCH (10:30)
[2019-11-01 11:03] VITALS: BP 113/61
--- NOTE | 2019-11-01 11:10 | PDOC ---
[facility] [facility] PROGRESS NOTE Chief Complaint Chief Complaint Chest pain GERD IBS History of Present Illness History of Present Illness 11/01/19 Pt seen and examined. Pt was pleasant and conversant during meeting. Pt denies any f/c/ chest pain/ SOB. DW pt and nurse regardign possible DC pending results of stress echo. Pt's chart reviewed. Vitals/I&O Vitals/I&O: Vital Signs Date Time Temp Pulse Resp B/P (MAP) Pulse Ox O2 Delivery O2 Flow Rate FiO2 11/01/19 11:03 98.6 60 16 113/61 (78) 98 Room Air 98.6 l I & O 10/31/19 10/31/19 11/01/19 15:00 23:00 07:00 Intake Total 240 ml 840 ml 200 ml Output Total 1000 ml Balance 240 ml 840 ml -800 ml Physical Exam General: Alert, Oriented X3 Heart: Regular rate Lungs: Clear Abdomen: Soft Extremities: No edema Skin: No rashes, No significant lesion Review of Systems Review of Systems: Gen: denies f/c GI: denies n/v Abdomen: lower L/R quadrant cramping Neuro- denies QUINONES, dizziness, change of vision Assessment and Plan Assessmemt and Plan Assessment Chest pain GERD IBS Plan GI consulted and following- per GI: continuing hyoscyamine and PPI. Add Miralax Cardiology consulted and following- per cardio: Chest pain with atypical features and most probably GI etiology. Myocardial infarction has been ruled out . Trend labs Continue home meds DVT prophylaxis Full code Plan to DC pending result of cardiac treadmill stress test Comment Review of Relevant I have reviewed the following items дмитрий (where applicable) has been applied. Medications: Current Medications Medications (Trade) Dose Ordered Sig/Devan Route PRN Reason Start Time Stop Time Status Last Admin Dose Admin Acetaminophen (Tylenol) 650 mg PRN Q6HRS PRN PO HEADACHE 10/31/19 11:30 10/31/19 16:26 Hyoscyamine (Anaspaz) 0.125 mg PRN Q4HRS PRN PO STOMACH CRAMPING 10/31/19 14:00 10/31/19 21:02 Hemodynamically unstable?: No Is patient in severe pain?: No Is NPO status required?: No ESTEBAN RUSSELL III DO Nov 01, 2019 11:10
[2019-11-01] MEDS: ACETAMINOPHEN 325 MG TABLET. PO PRN (13:42)
[2019-11-01] MEDS: HYOSCYAMINE 0.125 MG TAB.RAPDIS PO PRN (13:42)
[2019-11-01] MEDS: hydroCHLOROthiazide 12.5 MG CAPSULE PO SCH (13:42)
[2019-11-01] MEDS: PANTOPRAZOLE 40 MG TABLET.DR. PO SCH (13:43)
[2019-11-01] MEDS: LISINOPRIL 20 MG TABLET PO SCH (13:43)
--- NOTE | 2019-11-01 13:52 | NUR ---
SS following for discharge planning. SS reviewed pt chart. Pt is from home and is currently on room air. SS will continue to follow for discharge planning.
--- NOTE | 2019-11-01 14:03 | PDOC ---
CARDIO Progress Notes Date and Time Date of Service 11/01/19 Time of Evaluation 1400 Subjective Subjective: No Chest Pain, No shortness of breath, No Palpitations Vitals Vitals Vital Signs Date Time Temp Pulse Resp B/P (MAP) Pulse Ox O2 Delivery O2 Flow Rate FiO2 11/01/19 13:43 60 113/61 11/01/19 11:03 98.6 16 98 Room Air 98.6 Weight Weight [ ] Input and Output Intake and Output Intake and Output 11/01/19 07:00 Intake Total 1280 ml Output Total 1000 ml Balance 280 ml Intake Oral 1280 ml Output Urine Total 1000 ml # Voids 3 Physical Exam HEENT: Neck Supple W Full Motion Chest: Symmetric LUNGS: Clear to Auscultation Heart: S1S2, RRR Abdomen: Soft N/T Extremities: No Edema Neurology: alert, oriented, follow commands Assessment Assessment 1. Chest pain with atypical features and most probably GI etiology. Myocardial infarction has been ruled out. 2. Abdominal pain, IBS; as per GI 3. Hypertension: Controlled Recommendations May discharge from a CV standpoint Outpatient lipids Continue PPI Due to her family history of CAD, will obtain outpatient exercise stress echocardiogram to rule out ischemia. F/u with Dr. Verdin as scheduled. DENAE CARO APRN Nov 01, 2019 14:03
[2019-11-01 15:03] VITALS: BP 124/60
[2019-11-01] MEDS ORDERED: POLY2500 PO (16:26)
[2019-11-01] MEDS ORDERED: HYOS0.12 PO (16:27)
--- NOTE | 2019-11-01 18:03 | NUR ---
Discharge Note: MARK CUELLAR Discharge instructions and discharge home medications reviewed with Patient and a copy given. All questions have been answered and understanding verbalized. The following instructions and handouts were given: diverticulosis, diverticulitis and chest pain. Discontinued iv lines and catheter intact. Patient discharged to home with self-care via private vehicle.
== END 2019-11-01 18:06 | disposition home or self-care (01) | DRG 392 ==
LOC: ER 17:29 → 2 NORTH 19:07 → OBSVTOIN 19:07 → ER 19:54
PROVIDERS: ADMIT Internal Medicine; ATTEND Internal Medicine
DX: K21.9 Gastro-esophageal reflux disease without esophagitis (principal); K58.9 Irritable bowel syndrome, unspecified; I10 Essential (primary) hypertension; F41.9 Anxiety disorder, unspecified; K76.9 Liver disease, unspecified; Z90.710 Acquired absence of both cervix and uterus; Z88.0 Allergy status to penicillin; Z82.49 Family history of ischemic heart disease and other diseases of the circulatory system
CPT/HCPCS: 36415; 71045; 80053; 81001; 82550; 83690; 83735; 83880; 84484; 85025; 85610; 87086; 93005; 99285; G0378

== ENCOUNTER → 2019-11-19 | Outpatient (CLI) | payer MEDICARE, OTHER ==
[2019-11-01 15:03] VITALS: BP 124/60
[~2019-11-19] MED LIST changes: +BENA1TAB6 PO; +ESOM40CA47 PO; +HYOS0.12 PO; +POLY2500 PO
--- NOTE | 2019-11-19 18:56 | CARD ---
MR#: [id number] Date of Study: 11/19/2019 Ordering Physician: AYDE VALVERDE, Referring Physician: AYDE VALVERDE Tech: HannahLupe Fletcher APPROVED REPORT INDICATION Chest Pain RISK FACTORS Hypertension Reason : Patient complained of pain PROCEDURE The patient underwent an Exercise Stress Test using the [place] Protocol. Blood pressure, heart rate, a nd EKG were monitored. An Echocardiogram was performed by a/c technician in four stages in quad fashion. At peak stress four se lected images were obtained and placed side by side with resting images for comparison. STRESS ECHO FINDINGS The resting Echocardiogram showed normal left ventricular systolic contractility with an estimated Ej ection Fraction of about 55 %. The Resting Echocardiogram showed normal augmentation of myocardial wall segments using a 16 segment model. The Stress Echocardiogram showed normal augmentation of myocardial wall segments using a 16 segment m chichi. The Stress Echocardiogram left ventricular systolic contractility has an estimated Ejection Fraction of about 70%. Test Type: Exercise Stress Nurse/Tech: Avril Pena RN Test Indications: Chest pain in October 2019 Cardiac History and Allergies: Hypertension,smoker Medications: see EMR Medical History: see EMR Resting ECG: SR Resting Heart Rate: 77 bpm Resting Blood Pressure: 133/67mmHg Pretest Chest Pain: No chest pain Nurse/Tech Notes S1,S2 and lungs clear to auscultation. Patient stated she has GERD and IBS. Stress Symptoms Dyspnea,Fatigue, back pain (patient had never walked on a treadmill before) POST EXERCISE Reason for Termination: Reached target heart rate, Fatigue, Dyspnea Target HR: Yes Max HR: 158 bpm 109% of Maximum Predicted HR: 145 bpm Exercise duration: 3:19 min:sec, 2 Stage Exercise capacity: 4.6METs Max Blood Pressure: 176/72mmHg Blood Pressure response to exercise: Normal blood pressure response during stress. Heart Rate response to exercise: WNL Chest Pain: No. Arrhythmia: No. ST Change: Yes. slight ST changes in leads I,II,aVF and v3-v6. RESTING ECG Rhythm: Sinus Conduction: Normal Arrhythmias: None STRESS ECG Rhythm: Sinus Tachycardia Mildly positive ST-Segment changes. ST-Sement Location: Inferior. Timing of ST-Segment Depression: Stress and recovery ST-Segment Configuration: Upsloping Stress EKG shows changes suggestive of ischemia. Preliminary Notification Critical Value: No <Conclusion> Poor exercise capacity at 4.6 Mets only Mildly abnormal EKG with inferior/lateral ST segment depression Normal resting wall motion and EF at 60% Normal stress wall motion and at EF at 70% Low risk study Signed by : Jadiel Dixon, Electronically Approved : 11/19/2019 18:55:24
== END | disposition home or self-care (01) ==
LOC: ECHO 12:34
PROVIDERS: ATTEND Internal Medicine Cardiovascular Disease
DX: R94.31 Abnormal electrocardiogram [ECG] [EKG] (principal); R00.0 Tachycardia, unspecified
CPT/HCPCS: 93017; 93350

== ENCOUNTER → 2020-08-04 | Outpatient (CLI) | payer MEDICARE, OTHER ==
--- NOTE | 2020-08-04 18:00 | KCIC ---
Bilateral digital screening mammograms with 3-D tomosynthesis: Reason for examination: Routine screening. Comparison is made to previous studies dated back to 06/19/2015. Bilateral mammograms in CC and oblique projections were obtained with 2-D imaging and 3-D tomosynthesis imaging on a Siemens Inspiration unit and reviewed on the workstation. Interpretation was made with the benefit of CAD. The skin and nipples show no abnormalities. No abnormal axillary lymph nodes are seen. The breast parenchyma shows scattered fatty and fibroglandular density. (Breast density: Category B.) There is some asymmetric parenchyma in the right breast. There continues to be a small nodular parenchymal density centrally in the right breast which is unchanged. There are no new dominant masses, suspicious calcifications or architectural distortion. A few benign calcifications remain present. Impression: No evidence of malignancy. Recommend routine screening. BI-RAD Category 2: Benign. "Our facility is accredited by the [employer] Mammography Program." This patient's information has been entered into a reminder system for the patient to be notified with the results of her examination and a target date for the next mammogram. Electronically signed by: Medina Dyer MD (08/04/2020 5:57 PM) [id number]
== END ==
LOC: KCIC MAMMO 10:24
PROVIDERS: ATTEND Internal Medicine
DX: Z12.31 Encounter for screening mammogram for malignant neoplasm of breast (principal); N64.89 Other specified disorders of breast
CPT/HCPCS: 77063; 77067

== ENCOUNTER → 2021-02-14 | Outpatient (CLI) | payer MEDICARE, OTHER ==
--- NOTE | 2021-02-15 10:54 | CARD ---
MR#: [id number] Date of Study: 02/14/2021 Ordering Physician: AYDE VALVERDE, Referring Physician: AYDE VALVERDE Tech: Gosia Valentin RDCS APPROVED REPORT EXAM: Two-dimensional and M-mode echocardiogram with Doppler and color Doppler. Other Information Quality : Good INDICATION Chest Pain 2D DIMENSIONS RVDd3.0 (2.9-3.5cm)Left Atrium(2D)3.5 (1.6-4.0cm) IVSd1.0 (0.7-1.1cm)Aortic Root(2D)2.9 (2.0-3.7cm) LVDd4.5 (3.9-5.9cm)LVOT Diameter2.1 (1.8-2.4cm) PWd0.8 (0.7-1.1cm)LVDs2.9 (2.5-4.0cm) FS (%) 36.1 %SV60.8 ml LVEF(%)65.8 (>50%) Aortic Valve AoV Peak Danny.133.6cm/sAoV VTI24.8cm AO Peak GR.7.1mmHgLVOT Peak Danny.127.1cm/s AO Mean GR.4mmHgAVA (VMAX)3.31cm2 EMIL (VTI)3.42vp5PI P 1/2 Rsnc900lj Mitral Valve MV E [place]50.3cm/sMV DECEL OMZK833pt MV A Cdcsxzzy74.4cm/sE/A Ratio0.6 Tricuspid Valve TR P. Oyhlfbcn158po/sRAP CBLJOXLL5ohUi TR Peak Gr.90alOyMNUQ61qqNz Pulmonary Vein S1 Obstegfk52.3cm/sD2 Rmdzfhot39.0cm/s LEFT VENTRICLE The left ventricle is normal size. There is normal left ventricular wall thickness. The left ventricu lar systolic function is normal and the ejection fraction is within normal range. The Ejection Fracti on is 55-60%. There is normal LV segmental wall motion. Transmitral Doppler flow pattern is Grade I-a bnormal relaxation pattern. RIGHT VENTRICLE The right ventricle is normal size. The right ventricular systolic function is normal. ATRIA The left atrium size is normal. The right atrium size is normal. The interatrial septum is intact wit h no evidence for an atrial septal defect or patent foramen ovale as noted on 2-D or Doppler imaging. AORTIC VALVE The aortic valve is mildly thickened but opens well. Doppler and Color Flow revealed mild aortic regu rgitation. There is no significant aortic valvular stenosis. MITRAL VALVE The mitral valve is thickened but opens well. There is no evidence of mitral valve prolapse. There is no mitral valve stenosis. Doppler and Color Flow revealed no mitral valve regurgitation noted. TRICUSPID VALVE The tricuspid valve is normal in structure and function. Doppler and Color Flow revealed trace tricus pid regurgitation. The PA pressure was estimated at 25 mmHg. There is no tricuspid valve stenosis. PULMONIC VALVE The pulmonic valve is not well visualized. Doppler and Color Flow revealed trace to mild pulmonic linda vular regurgitation. There is no pulmonic valvular stenosis. GREAT VESSELS The aortic root is normal in size. The ascending aorta is mildly dilated at 3.4 cm. The IVC is normal in size and collapses >50% with inspiration. PERICARDIAL EFFUSION There is no evidence of significant pericardial effusion. Critical Notification Critical Value: No <Conclusion> The left ventricular systolic function is normal and the ejection fraction is within normal range. Th e Ejection Fraction is 55-60%. There is normal LV segmental wall motion. Doppler and Color Flow revealed mild aortic regurgitation. The ascending aorta is mildly dilated at 3.4 cm. Signed by : Jadiel Dixon, Electronically Approved : 02/15/2021 10:53:39
== END ==
LOC: ECHO 08:00
PROVIDERS: ATTEND Internal Medicine Cardiovascular Disease
DX: I08.8 Other rheumatic multiple valve diseases (principal)
CPT/HCPCS: 93306

== ENCOUNTER → 2021-08-20 | Outpatient (CLI) | payer MEDICARE, OTHER ==
[~2021-08-20] MED LIST changes: -BENA20TA4 PO; +BENA20TA84 PO
--- NOTE | 2021-08-20 18:48 | KCIC ---
Bilateral digital screening 2-D and 3-D (digital breast tomosynthesis) mammogram: Reason for examination: Routine screening. Comparison: Mammograms from 08/04/2020 and 07/19/2019. Interpretation was made with the benefit of CAD. FINDINGS: Breast density: Category B. There are scattered areas of fibroglandular density. No suspicious breast mass, malignant appearing calcifications, or architectural distortion is seen. IMPRESSION: No evidence of malignancy. Assessment: BI-RADS 1. Negative. Recommendation: Routine screening mammograms. The patient will receive a letter with the results in the mail. Patient information will be entered i nto the mammography reminder system with a target recall date for the next mammogram. A reminder cande er will be generated. Electronically signed by: Liliya Chapin MD (08/20/2021 6:46 PM) [id number]
== END ==
LOC: KCIC MAMMO 09:43
PROVIDERS: ATTEND Internal Medicine
DX: Z12.31 Encounter for screening mammogram for malignant neoplasm of breast (principal)
CPT/HCPCS: 77063; 77067